=== PATIENT | female | born 1960 | race African-American/Black ===

== ENCOUNTER → 2016-12-14 | Day surgery (SDC) | payer OTHER | END | disposition home or self-care (01) | LOC: FAS 05:51 | DX: Z12.11 Encounter for screening for malignant neoplasm of colon (principal); Z88.8 Allergy status to other drugs, medicaments and biological substances; Z79.899 Other long term (current) drug therapy; Z90.710 Acquired absence of both cervix and uterus; Z98.890 Other specified postprocedural states | CPT/HCPCS: J2704 ==